=== PATIENT | male | born 1995 | race Caucasian/White ===

== ENCOUNTER 2025-01-24 07:06 | Emergency (ER) | payer OTHER ==
[~2025-01-24] VITALS: Ht 198.1 cm; Wt 129.3 kg
[2025-01-24 07:46] LABS: PLATELET COUNT (AUTO) 228 K/uL (150-450); RED BLOOD CELL COUNT(AUTO) 5.75 MIL/uL (4.5-6.0); RED CELL DISTRIBUTION WIDTH 13.8 % (11.5-15.0); WHITE BLOOD COUNT (AUTO) 14.7 K/uL (4.3-11.0)
[2025-01-24 07:53] LABS: CALCIUM, SERUM 9.3 mg/dL (8.5-10.1); CREATININE 0.8 mg/dL (0.6-1.3); SODIUM SERUM 134 mmol/L (136-145); UREA NITROGEN, BLOOD 26 mg/dL (7-18)
[2025-01-24 07:58] LABS: ASPARTATE AMINOTRANSFERASE 51 U/L (15-37); TOTAL PROTEIN, SERUM 8.0 g/dL (6.4-8.2)
[2025-01-24 08:12] LABS: ALCOHOL, BLOOD < 3 mg/dL (0-10)
[2025-01-24 09:38] LABS: APPEARANCE,URINE CLEAR (CLEAR); BLOOD, URINE TRACE-INTA Ery/uL (NEGATIVE); LEUKOCYTE ESTERASE ,URINE NEGATIVE (NEGATIVE); NITRITE, URINE NEGATIVE (NEGATIVE); UGLUCOSE NEGATIVE (NEGATIVE)
[2025-01-24 09:59] LABS: AMPHETAMINE, URINE POSITIVE (NEGATIVE); BARBITURATE, URINE NEGATIVE (NEGATIVE); BENZODIAZEPINE, URINE NEGATIVE (NEGATIVE); CANNABINOID, URINE POSITIVE (NEGATIVE); COCCAINE, URINE NEGATIVE (NEGATIVE); OPIATE, URINE NEGATIVE (NEGATIVE)
[2025-01-24 10:17] LABS: ADD URINE CULTURE NO; FINE GRANULAR CASTS,URINE Few /LPF (None Seen); SQUAMOUS EPITHELIAL CELL,UR 0-2 /HPF (None Seen)
[2025-01-24] MEDS ORDERED: OLANZAPINE ZYDIS 5 MG TAB.RAPDIS ONE (12:45)
[2025-01-24] MEDS: OLANZAPINE ZYDIS 5 MG TAB.RAPDIS PO ONE (12:47)
[2025-01-24 15:10] VITALS: BP 123/81; TEMP 98.9; O2SAT 98
== END 2025-01-24 15:10 | disposition home or self-care (01) ==
LOC: ER 07:10
DX: F15.959 Other stimulant use, unspecified with stimulant-induced psychotic disorder, unspecified (principal); Z20.822 Contact with and (suspected) exposure to COVID-19; Z79.899 Other long term (current) drug therapy
CPT/HCPCS: 36415; 80048-TC; 80076-TC; 81001; 85025-TC; G0480

== ENCOUNTER 2025-01-31 17:38 | Inpatient (IN) | payer OTHER ==
[~2025-01-31] VITALS: Ht 182.9 cm; Wt 127.9 kg
[2025-01-31] MEDS ORDERED: LORAZEPAM INJ 2 MG/ML VIAL ONE (17:53)
[2025-01-31 17:58] LABS: PLATELET COUNT (AUTO) 312 K/uL (150-450); RED BLOOD CELL COUNT(AUTO) 5.17 MIL/uL (4.5-6.0); RED CELL DISTRIBUTION WIDTH 13.3 % (11.5-15.0); WHITE BLOOD COUNT (AUTO) 16.0 K/uL (4.3-11.0)
[2025-01-31] MEDS: IV NS 0.9% 1,000 ML BAG IV ONE ×2 (17:58→18:30)
[2025-01-31] MEDS: LORAZEPAM INJ 2 MG/ML VIAL IM ONE (17:58)
[2025-01-31] MEDS: LORAZEPAM INJ 2 MG/ML VIAL IV ONE (18:02)
[2025-01-31 18:09] LABS: CALCIUM, SERUM 8.7 mg/dL (8.5-10.1); CREATININE 1.5 mg/dL (0.6-1.3); SODIUM SERUM 129 mmol/L (136-145); UREA NITROGEN, BLOOD 23 mg/dL (7-18)
[2025-01-31 18:16] LABS: ALCOHOL, BLOOD < 3 mg/dL (0-10); ASPARTATE AMINOTRANSFERASE 87 U/L (15-37); TOTAL PROTEIN, SERUM 7.1 g/dL (6.4-8.2)
[2025-01-31 18:30] LABS: APPEARANCE,URINE CLEAR (CLEAR); BLOOD, URINE NEGATIVE Ery/uL (NEGATIVE); LEUKOCYTE ESTERASE ,URINE NEGATIVE (NEGATIVE); NITRITE, URINE NEGATIVE (NEGATIVE); UGLUCOSE NEGATIVE (NEGATIVE)
[2025-01-31] MEDS: POTASSIUM CL. PREMIX PERIPHER. 50 ML IV SCH (18:30)
[2025-01-31 18:41] LABS: ADD URINE CULTURE NO; SQUAMOUS EPITHELIAL CELL,UR None Seen /HPF (None Seen)
[2025-01-31] MEDS: POTASSIUM CHLORIDE 20 MEQ TAB.PRT.SR PO ONE (18:46)
[2025-01-31 19:01] LABS: BARBITURATE, URINE NEGATIVE (NEGATIVE); BENZODIAZEPINE, URINE NEGATIVE (NEGATIVE); COCCAINE, URINE NEGATIVE (NEGATIVE); OPIATE, URINE NEGATIVE (NEGATIVE)
[2025-01-31 19:02] LABS: AMPHETAMINE, URINE POSITIVE (NEGATIVE); CANNABINOID, URINE POSITIVE (NEGATIVE)
[2025-01-31] MEDS ORDERED: ONDANSETRON HCL/PF 4 MG/2 ML VIAL IVP PRN (20:00)
[2025-01-31] MEDS ORDERED: ACETAMINOPHEN 325 MG TABLET PO PRN (20:00)
[2025-01-31] MEDS ORDERED: LORAZEPAM INJ 2 MG/ML VIAL IV PRN (20:00)
[2025-01-31] MEDS ORDERED: POTASSIUM CL. PREMIX PERIPHER. 50 ML ONE (21:04)
[2025-01-31] MEDS: IV NS 0.9% 1,000 ML IV SCH (22:32)
[2025-02-01] VITALS: BP 121/77; TEMP 98; O2SAT 99
[2025-02-01] MEDS: LORAZEPAM INJ 2 MG/ML VIAL IM PRN (00:08)
[2025-02-01 01:14] LABS: ASPARTATE AMINOTRANSFERASE 62.0 U/L (15-37); CALCIUM, SERUM 7.9 mg/dL (8.5-10.1); CREATININE 1.0 mg/dL (0.6-1.3); SODIUM SERUM 131.0 mmol/L (136-145); TOTAL PROTEIN, SERUM 5.9 g/dL (6.4-8.2); UREA NITROGEN, BLOOD 16.0 mg/dL (7-18)
[2025-02-01 01:25] LABS: CREATINE KINASE, TOTAL 1248.0 U/L (39-308)
[2025-02-01 04:00] VITALS: BP 121/90; TEMP 98.2; O2SAT 99
[2025-02-01 07:11] LABS: PLATELET COUNT (AUTO) 212 K/uL (150-450); RED BLOOD CELL COUNT(AUTO) 4.34 MIL/uL (4.5-6.0); RED CELL DISTRIBUTION WIDTH 13.2 % (11.5-15.0); WHITE BLOOD COUNT (AUTO) 10.5 K/uL (4.3-11.0)
[2025-02-01 07:26] LABS: CREATINE KINASE, TOTAL 863.0 U/L (39-308)
[2025-02-01 07:29] LABS: ASPARTATE AMINOTRANSFERASE 55.0 U/L (15-37); CALCIUM, SERUM 7.9 mg/dL (8.5-10.1); CREATININE 0.9 mg/dL (0.6-1.3); PHOSPHORUS 2.6 mg/dL (2.5-4.9); SODIUM SERUM 134.0 mmol/L (136-145); TOTAL PROTEIN, SERUM 5.6 g/dL (6.4-8.2); UREA NITROGEN, BLOOD 12.0 mg/dL (7-18)
[2025-02-01 08:00] VITALS: BP 129/57; TEMP 97; O2SAT 99
[2025-02-01] MEDS: PANTOPRAZOLE 40 MG TABLET.DR PO SCH (09:04)
[2025-02-01] MEDS: POTASSIUM CHLORIDE 20 MEQ TAB.PRT.SR PO SCH (10:01)
[2025-02-01] MEDS: OLANZAPINE 2.5 MG TABLET PO SCH (11:46)
[2025-02-01 12:00] VITALS: BP 129/87; TEMP 98.6; O2SAT 99
[2025-02-01 16:39] VITALS: BP 131/90; TEMP 98.8; O2SAT 99
[2025-02-01] MEDS: IV NS 0.9% 1,000 ML IV PRN (19:25)
[2025-02-01 20:00] VITALS: BP 136/96; TEMP 99; O2SAT 97
[2025-02-02] VITALS: BP 137/96; TEMP 98.2; O2SAT 98
[2025-02-02 04:00] VITALS: BP 127/93; TEMP 98; O2SAT 98
[2025-02-02 07:02] LABS: APPEARANCE,URINE CLEAR (CLEAR); BLOOD, URINE TRACE-INTA Ery/uL (NEGATIVE); LEUKOCYTE ESTERASE ,URINE NEGATIVE (NEGATIVE); NITRITE, URINE NEGATIVE (NEGATIVE); UGLUCOSE NEGATIVE (NEGATIVE)
[2025-02-02 07:32] LABS: ADD URINE CULTURE NO; SQUAMOUS EPITHELIAL CELL,UR 0-2 /HPF (None Seen)
[2025-02-02 07:33] LABS: CREATININE, URINE 79.4 MG/DL (30.0-125.0); URINE SODIUM, RANDOM 15.0 mmol/l (40-220); URINE TOTAL PROTEIN 16.1 mg/dL (0-11.9)
[2025-02-02 08:00] VITALS: BP 133/83; TEMP 98.6; O2SAT 99
[2025-02-02] MEDS ORDERED: Z GUARD REMEDY 4 OZ OINT TP PRN (09:30)
[2025-02-02] MEDS: Z GUARD REMEDY 4 OZ OINT TP SCH (09:46)
[2025-02-02 10:15] LABS: EOSINOPHIL,URINE None Seen
[2025-02-02 10:55] LABS: PLATELET COUNT (AUTO) 251 K/uL (150-450); RED BLOOD CELL COUNT(AUTO) 4.71 MIL/uL (4.5-6.0); RED CELL DISTRIBUTION WIDTH 13.6 % (11.5-15.0); WHITE BLOOD COUNT (AUTO) 9.8 K/uL (4.3-11.0)
[2025-02-02 11:07] LABS: CALCIUM, SERUM 8.2 mg/dL (8.5-10.1); CREATININE 0.7 mg/dL (0.6-1.3); PHOSPHORUS 2.7 mg/dL (2.5-4.9); SODIUM SERUM 140.0 mmol/L (136-145); UREA NITROGEN, BLOOD 7.0 mg/dL (7-18)
[2025-02-02 12:00] VITALS: BP 126/93; TEMP 98.1; O2SAT 99
[2025-02-02 16:00] VITALS: BP 128/94; TEMP 97.4; O2SAT 98
[2025-02-02] MEDS: CLOTRIMAZOLE 1% 15 GM TUBE TP SCH (17:11)
[2025-02-02 20:00] VITALS: BP 106/78; TEMP 99; O2SAT 99
[2025-02-02] MEDS: OLANZAPINE 10 MG VIAL IM PRN (21:04)
[2025-02-03 05:15] VITALS: BP 110/80; TEMP 99; O2SAT 99
[2025-02-03 05:30] VITALS: BP 112/75; TEMP 99; O2SAT 98
[2025-02-03 05:45] VITALS: BP 110/79; TEMP 98.9; O2SAT 98
[2025-02-03 06:00] VITALS: BP_SYST 118; BP_SYST 124; BP_DIAS 54; BP_DIAS 75; TEMP 98.7; TEMP 99.5; O2SAT 98
[2025-02-03 06:40] LABS: PLATELET COUNT (AUTO) 223 K/uL (150-450); RED BLOOD CELL COUNT(AUTO) 4.39 MIL/uL (4.5-6.0); RED CELL DISTRIBUTION WIDTH 13.4 % (11.5-15.0); WHITE BLOOD COUNT (AUTO) 9.9 K/uL (4.3-11.0)
[2025-02-03 07:16] LABS: CALCIUM, SERUM 8.6 mg/dL (8.5-10.1); CREATININE 0.7 mg/dL (0.6-1.3); SODIUM SERUM 142.0 mmol/L (136-145); UREA NITROGEN, BLOOD 9.0 mg/dL (7-18)
[2025-02-03 07:30] LABS: OSMOLALITY,URINE 250.0 mOS/kg (340-1090)
[2025-02-03] MEDS: OLANZAPINE 2.5 MG TABLET PO SCH (08:49)
[2025-02-03] MEDS: POTASSIUM CHLORIDE 20 MEQ TAB.PRT.SR PO SCH (10:05)
== END 2025-02-03 11:52 | DRG 351 ==
LOC: ER 17:44 → MEDSG1 20:46 → TELE1 21:13 → MEDSG1 02-02 09:55
PROVIDERS: ADMIT Registered Nurse Psychiatric/Mental Health; ATTEND Nurse Practitioner Acute Care
DX: M62.82 Rhabdomyolysis (principal); N17.9 Acute kidney failure, unspecified; E87.1 Hypo-osmolality and hyponatremia; F15.959 Other stimulant use, unspecified with stimulant-induced psychotic disorder, unspecified; E87.6 Hypokalemia; Z20.822 Contact with and (suspected) exposure to COVID-19; Z88.8 Allergy status to other drugs, medicaments and biological substances; E80.6 Other disorders of bilirubin metabolism; R74.01 Elevation of levels of liver transaminase levels; D72.829 Elevated white blood cell count, unspecified; F39 Unspecified mood [affective] disorder; Z91.148 Patient's other noncompliance with medication regimen for other reason; Z59.00 Homelessness unspecified; Z71.6 Tobacco abuse counseling; Z88.0 Allergy status to penicillin; Z78.1 Physical restraint status; F31.9 Bipolar disorder, unspecified; F17.200 Nicotine dependence, unspecified, uncomplicated; E86.1 Hypovolemia; E86.9 Volume depletion, unspecified; S91.312A Laceration without foreign body, left foot, initial encounter; S91.311A Laceration without foreign body, right foot, initial encounter; X58.XXXA Exposure to other specified factors, initial encounter; Y92.9 Unspecified place or not applicable
CPT/HCPCS: 36415; 80048-TC; 80053-TC; 80076-TC; 81001; 82550-TC; 82553; 82570-TC; 83735-TC; 83935-TC; 84100-TC; 84300-TC; 84443-TC; 84550-TC; 85025-TC; 87081-TC; 98960; G0378; G0480; J2060; J3480; J3490; J7030

== ENCOUNTER 2025-02-04 03:13 | Emergency (ER) | payer OTHER ==
[~2025-02-04] VITALS: Ht 195.6 cm; Wt 123.8 kg
[2025-02-04] MEDS: IV NS 0.9% 1,000 ML BAG IV ONE ×3 (03:41→13:45)
[2025-02-04 04:02] LABS: PLATELET COUNT (AUTO) 278 K/uL (150-450); RED BLOOD CELL COUNT(AUTO) 4.75 MIL/uL (4.5-6.0); RED CELL DISTRIBUTION WIDTH 13.6 % (11.5-15.0); WHITE BLOOD COUNT (AUTO) 18.2 K/uL (4.3-11.0)
[2025-02-04 04:12] LABS: CALCIUM, SERUM 9.0 mg/dL (8.5-10.1); CREATININE 1.4 mg/dL (0.6-1.3); SODIUM SERUM 140 mmol/L (136-145); UREA NITROGEN, BLOOD 17 mg/dL (7-18)
[2025-02-04 04:14] LABS: ASPARTATE AMINOTRANSFERASE 66 U/L (15-37); TOTAL PROTEIN, SERUM 6.6 g/dL (6.4-8.2)
[2025-02-04 04:16] LABS: ALCOHOL, BLOOD < 3 mg/dL (0-10)
[2025-02-04 04:16] LABS: AMPHETAMINE, URINE NEGATIVE (NEGATIVE); BARBITURATE, URINE NEGATIVE (NEGATIVE); BENZODIAZEPINE, URINE NEGATIVE (NEGATIVE); CANNABINOID, URINE POSITIVE (NEGATIVE); COCCAINE, URINE NEGATIVE (NEGATIVE); OPIATE, URINE NEGATIVE (NEGATIVE)
[2025-02-04 04:17] LABS: APPEARANCE,URINE CLEAR (CLEAR); BLOOD, URINE NEGATIVE Ery/uL (NEGATIVE); LEUKOCYTE ESTERASE ,URINE NEGATIVE (NEGATIVE); NITRITE, URINE NEGATIVE (NEGATIVE); UGLUCOSE NEGATIVE (NEGATIVE)
[2025-02-04 04:25] LABS: ADD URINE CULTURE YES
[2025-02-04 04:26] LABS: COARSE GRANULAR CASTS,URINE Rare /LPF (None Seen); SQUAMOUS EPITHELIAL CELL,UR Few /HPF (None Seen)
[2025-02-04] MEDS ORDERED: OLANZAPINE 5 MG TABLET ONE (06:10)
[2025-02-04] MEDS: OLANZAPINE ZYDIS 5 MG TAB.RAPDIS PO ONE (06:13)
[2025-02-04] MEDS ORDERED: OLANZAPINE 10 MG VIAL IM ONE ×2 (13:03→22:01)
[2025-02-04] MEDS ORDERED: LORAZEPAM INJ 2 MG/ML VIAL ONE ×2 (13:04→13:30)
[2025-02-04] MEDS: LORAZEPAM INJ 2 MG/ML VIAL IM ONE (13:19)
[2025-02-04] MEDS: OLANZAPINE 10 MG VIAL IM ONE ×2 (13:19→22:07)
[2025-02-04] MEDS: LORAZEPAM INJ 2 MG/ML VIAL IV ONE (13:47)
[2025-02-05 01:11] VITALS: BP 138/87; TEMP 98; O2SAT 98
== END 2025-02-05 01:11 | disposition home or self-care (01) ==
LOC: ER 03:16
DX: R45.6 Violent behavior (principal); Z88.0 Allergy status to penicillin; Z79.899 Other long term (current) drug therapy; Z20.822 Contact with and (suspected) exposure to COVID-19; Z59.00 Homelessness unspecified
CPT/HCPCS: 99291; 96372 ×2; 96374; 96361; 85025; 80048; 87086; 80076; 81001; 36415; 87426; 80143; 80320; 80307; J2060 ×2; J7030; J3490 ×2; G0480